=== PATIENT | female | born 2000 | race Caucasian/White ===

== ENCOUNTER 2023-11-06 11:58 | Inpatient (IN) | payer OTHER, SELFPAY ==
[2023-11-06] VITALS (42 sets, daily range): BP systolic 117–143; BP diastolic 67–95; PULSE 71–114; RESP 14–18; TEMP 36.4–37.8; O2SAT 94–99; BMI 32.3
[2023-11-06 11:18] LABS: Hematocrit 36.6 % (37-47); Hemoglobin 12.5 g/dL (12.0-15.0); Mean Corp Hgb Conc 34.2 g/dL (32-36); Mean Corpuscular Hgb 29.1 pg (27.0-32.0); Mean Corpuscular Volume 85.1 fL (81-99); Mean Platelet Vol. 12.4 fl (6.2-12.0); Platelet Count 146 K/mm3 (150-450); RBC Distribution Width CV 13.6 % (11.6-14.6); RBC Distribution Width SD 41.4 fl (35.1-43.9); White Blood Count 11.3 K/mm3 (4.4-11.0)
[2023-11-06 11:33] LABS: AST(SGOT) 27 U/L (15-37); Alanine Aminotransfer ALT/SGPT 15 U/L (13-56); Creatinine, Serum 0.82 mg/dL (0.55-1.02); EST Glomerular Filtration Rate 90 mL/min (>60); Est Glom Filt Rate - Afr Amer 109 mL/min (>60); Estimated Creatinine Clearance 102.82 ml/min
[2023-11-06 11:35] LABS: Protein, Urine (Random) 406.1 mg/dL (<11.9); Protein:Creat Ratio 1624 mg/g CRE (0-200)
[2023-11-06] MEDS: 0.9% Saline Lock 10 ML Syringe IV (13:08)
[2023-11-06] MEDS: miSOPROStol 25 MCG TABLET VAGINAL (13:09)
[2023-11-06 16:43] LABS: Syphilis Antibodies Non-reactive
[2023-11-06] MEDS: 0.9% Normal Saline Single 100 ML IV.SOLN. INTRA-UTER (17:40)
[2023-11-06] MEDS: LACTATED RINGERS 500 ML 999 ML IV ×2 (18:22→20:45)
[2023-11-06] MEDS: Lactated Ringers 1,000 ML 999 ML IV (19:31)
--- NOTE | 2023-11-06 19:42 | PCM.HP.OB ---
HPI - General General Date of Admission: 11/06/23 Date of Service: 11/06/23 Chief Complaint: Pre E HPI Narrative TRINH ROMAN, is a 23 F who presents from the office with elevated BP and proteinuria. No RICKETTS or vision changes. Maternal Data Information Final FAITH: 11/11/23 Gestational age: 39+2 [facility] Medical History (Updated 11/06/23 @ 19:[address] Diane Campos MD) Pre-eclampsia Home Medications ?Medication ?Instructions ?Recorded ?Last Taken ?Type Vitamin 1 tab PO DAILY 11/06/23 11/06/23 07:00 History 1 tab Allergy/AdvReac Type Severity Reaction Status Date / Time No Known Allergies Allergy Verified 11/06/23 13:35 Social History Smoking Status: Never smoker History 1 Elective abortions Hx Para 0 Spontaneous abortions Hx # Term Pregnancies Ectopic pregnancies Hx # Pregnancies Multiple births # of living children NST FHR Rate Baby A Baseline: 140 Variability:: Moderate Accelerations:: 15 x 15 Decelerations:: None NST Reactive:: Yes FHR Category:: Category I ROS Constitutional Constitutional: Denies fatigue, fever(s) or malaise Eyes Eyes: Denies change in vision ENT HEENT: Denies dizziness or headache(s) Cardiovascular Cardiovascular: Denies chest pain, dyspnea or lightheadedness Respiratory/Chest Respiratory/Chest: Denies cough or dyspnea Gastrointestinal Gastrointestinal: Denies change in bowel habits Genitourinary Genitourinary: Denies burning urination or genital lesions Integumentary Integumentary: Denies rash Neurologic Neurologic: Denies confusion, dizziness, headache(s), numbness or weakness Vital Signs Vital Signs Vital Signs: 11/06/23 10:46 11/06/23 10:46 11/06/23 10:46 Temperature 97.6 F L Temperature Source Temporal Pulse Rate Respiratory Rate 16 Blood Pressure BP Systolic BP Diastolic Pulse Ox 11/06/23 10:47 11/06/23 10:47 11/06/23 10:47 Temperature Temperature Source Pulse Rate 86 90 Respiratory Rate Blood Pressure 138/90 H BP Systolic 138 BP Diastolic 90 Pulse Ox 11/06/23 10:47 11/06/23 11:02 11/06/23 11:02 Temperature Temperature Source Pulse Rate 89 Respiratory Rate Blood Pressure 117/78 BP Systolic 117 BP Diastolic 78 Pulse Ox 96 11/06/23 11:18 11/06/23 11:18 11/06/23 11:32 Temperature Temperature Source Pulse Rate 81 Respiratory Rate Blood Pressure 133/87 H 134/87 H BP Systolic 133 134 BP Diastolic 87 87 Pulse Ox 11/06/23 11:32 11/06/23 11:46 11/06/23 11:46 Temperature Temperature Source Pulse Rate 83 77 Respiratory Rate Blood Pressure 129/84 H BP Systolic 129 BP Diastolic 84 Pulse Ox 11/06/23 12:01 11/06/23 12:01 11/06/23 13:31 Temperature Temperature Source Pulse Rate 75 Respiratory Rate Blood Pressure 122/82 H 134/90 H BP Systolic 122 134 BP Diastolic 82 90 Pulse Ox 11/06/23 13:31 11/06/23 13:32 11/06/23 13:32 Temperature Temperature Source Pulse Rate 73 72 Respiratory Rate Blood Pressure BP Systolic BP Diastolic Pulse Ox 96 11/06/23 13:32 11/06/23 13:32 11/06/23 13:32 Temperature Temperature Source Temporal Pulse Rate Respiratory Rate 18 Blood Pressure BP Systolic BP Diastolic Pulse Ox 97 11/06/23 13:32 11/06/23 14:59 11/06/23 14:59 Temperature 98.8 F Temperature Source Pulse Rate 77 Respiratory Rate Blood Pressure 131/84 H BP Systolic 131 BP Diastolic 84 Pulse Ox 11/06/23 14:59 11/06/23 14:59 11/06/23 14:59 Temperature 98.7 F Temperature Source Temporal Pulse Rate Respiratory Rate 16 Blood Pressure BP Systolic BP Diastolic Pulse Ox 11/06/23 17:34 11/06/23 17:34 11/06/23 17:34 Temperature Temperature Source Temporal Pulse Rate 91 Respiratory Rate Blood Pressure 139/92 H BP Systolic 139 BP Diastolic 92 Pulse Ox 11/06/23 17:34 11/06/23 17:34 11/06/23 19:20 Temperature 100.0 F H Temperature Source Temporal Pulse Rate Respiratory Rate 18 Blood Pressure BP Systolic BP Diastolic Pulse Ox 11/06/23 19:20 11/06/23 19:20 11/06/23 19:20 Temperature Temperature Source Pulse Rate 71 Respiratory Rate 14 Blood Pressure BP Systolic BP Diastolic Pulse Ox 97 11/06/23 19:20 11/06/23 19:23 11/06/23 19:23 Temperature 98.1 F Temperature Source Pulse Rate 80 Respiratory Rate Blood Pressure 141/85 H BP Systolic 141 BP Diastolic 85 Pulse Ox Weight Weight: 80.1 kg Body Mass Index (BMI) 32.3 Physical Exam Const alert and no apparent distress General Appearance: cooperative HEENT normocephalic Resp normal respiratory effort Cardio regular rate GI soft to palpation GI Narrative: gravid, nontender, appropriate for gestational age Extremity no calf tenderness General Extremity: edema Skin no wounds Rashes: No rashes noted Psych activity/motor behavior normal Labs Labs Labs: Blood Type A NEGATIVE Antibody Screen POSITIVE Hct 36.6 % (37-47) L Hgb 12.5 g/dL (12.0-15.0) Syphilis Total Ab Non-reactive Assessment & Plan (1) 39 weeks gestation of : (2) Pre-eclampsia affecting , antepartum: PLAN: Plan IOL for Pre E
--- NOTE | 2023-11-06 19:49 | PCM.PN.OB ---
Subjective Subjective Morgan placed without difficulty. 2 70/-2 soft. s/p one dose of cytotec. No pit currently Cat I. Objective Data Objective Data Vital Signs: Vital Signs Temp Pulse Resp BP Pulse Ox 98.1 F 80 14 141/85 H 97 11/06/23 19:20 11/06/23 19:23 11/06/23 19:20 11/06/23 19:23 11/06/23 19:20 Weight: 80.1 kg Body Mass Index (BMI) 32.3 Intake & Output: Intake and Output for Last 24 Hours 11/04/23 11/05/23 11/06/23 23:59 23:59 23:59 Intake Total 600 / 600 Balance 600 / 600 Lab / Micro Data 11/06/23 11:05 11/06/23 11:05 Labs: Laboratory Results - last 24 hr 11/06/23 11:05: WBC 11.3 H, RBC 4.30, Hgb 12.5, Hct 36.6 L, MCV 85.1, MCH 29.1, MCHC 34.2, RDW Std Deviation 41.4, RDW Coeff of Yoana 13.6, Plt Count 146 L, MPV 12.4 H, Creatinine 0.82, Estim Creat Clear Calc 102.82, Est GFR (MDRD) Af Amer 109, Est GFR (MDRD) Non-Af 90, Uric Acid 8.0 H, AST 27, ALT 15, U Random Total Protein 406.1 H, Urine Creatinine 250.00, Protein/Creatinin Ratio 1624 H 11/06/23 13:05: Syphilis Total Ab Non-reactive, Blood Type A NEGATIVE, Antibody Screen POSITIVE, Antibody Identification ANTI-D NST FHR Rate Baby A FHR Category:: Category I Assessment & Plan (1) Pre-eclampsia affecting , antepartum: (2) 39 weeks gestation of :
[2023-11-06] MEDS: fentaNYL-bupivacaine (epidural) 100 ML BAG EPIDURAL (20:27)
[2023-11-06] MEDS: Lactated Ringers 1,000 ML 200 ML IV (20:33)
[2023-11-06] MEDS: Terbutaline 1 MG/ML Vial 0.25 MG SC (20:50)
--- NOTE | 2023-11-06 20:56 | PCM.PN.OB ---
Subjective Subjective HR decel to 90 AROM with mec present. IUPC and FSE placed. Terb given for tachysystole. Has not had Pitocin. One dose of Cytotec 8 hours ago. HR recovery with acceleration Objective Data Objective Data Vital Signs: Vital Signs Temp Pulse Resp BP Pulse Ox 99.2 F H 85 14 134/92 H 98 11/06/23 20:28 11/06/23 20:55 11/06/23 20:35 11/06/23 20:50 11/06/23 20:55 Weight: 80.1 kg Body Mass Index (BMI) 32.3 Intake & Output: Intake and Output for Last 24 Hours 11/04/23 11/05/23 11/06/23 23:59 23:59 23:59 Intake Total 600 / 600 Balance 600 / 600 Lab / Micro Data 11/06/23 11:05 11/06/23 11:05 Labs: Laboratory Results - last 24 hr 11/06/23 11:05: WBC 11.3 H, RBC 4.30, Hgb 12.5, Hct 36.6 L, MCV 85.1, MCH 29.1, MCHC 34.2, RDW Std Deviation 41.4, RDW Coeff of Yoana 13.6, Plt Count 146 L, MPV 12.4 H, Creatinine 0.82, Estim Creat Clear Calc 102.82, Est GFR (MDRD) Af Amer 109, Est GFR (MDRD) Non-Af 90, Uric Acid 8.0 H, AST 27, ALT 15, U Random Total Protein 406.1 H, Urine Creatinine 250.00, Protein/Creatinin Ratio 1624 H 11/06/23 13:05: Syphilis Total Ab Non-reactive, Blood Type A NEGATIVE, Antibody Screen POSITIVE, Antibody Identification ANTI-D Assessment & Plan (1) Pre-eclampsia affecting , antepartum: (2) 39 weeks gestation of : PLAN: Plan Continue to monitor
[2023-11-07] VITALS (118 sets, daily range): BP systolic 124–168; BP diastolic 70–103; PULSE 80–115; RESP 14–18; TEMP 36.6–37.8; O2SAT 82–100
[2023-11-07] MEDS: fentaNYL-bupivacaine (epidural) 100 ML BAG EPIDURAL ×2 (01:35→07:57)
[2023-11-07] MEDS: Lactated Ringers 1,000 ML 200 ML IV ×2 (02:55→07:57)
[2023-11-07] MEDS: Ondansetron 4 MG/2 ML Vial IV (05:18)
--- NOTE | 2023-11-07 05:39 | PCM.PN.OB ---
Subjective Subjective 5-6/80/-2 vertex now well applied to cervix, fluid clear after an initial finding of mec, intermittent cat 2. Has had no pitocin. One severe range BP. Objective Data Objective Data Vital Signs: Vital Signs Temp Pulse Resp BP Pulse Ox 99.2 F H 90 14 146/95 H 97 11/07/23 04:48 11/07/23 05:21 11/07/23 04:48 11/07/23 05:21 11/07/23 04:49 Weight: 80.1 kg Body Mass Index (BMI) 32.3 Intake & Output: Intake and Output for Last 24 Hours 11/05/23 11/06/23 11/07/23 23:59 23:59 23:59 Intake Total 2099 / 2099 1000 / 1000 Output Total 400 / 400 Balance 2099 / 2099 600 / 600 Lab / Micro Data 11/06/23 11:05 11/06/23 11:05 Labs: Laboratory Results - last 24 hr 11/06/23 11:05: WBC 11.3 H, RBC 4.30, Hgb 12.5, Hct 36.6 L, MCV 85.1, MCH 29.1, MCHC 34.2, RDW Std Deviation 41.4, RDW Coeff of Yoana 13.6, Plt Count 146 L, MPV 12.4 H, Creatinine 0.82, Estim Creat Clear Calc 102.82, Est GFR (MDRD) Af Amer 109, Est GFR (MDRD) Non-Af 90, Uric Acid 8.0 H, AST 27, ALT 15, U Random Total Protein 406.1 H, Urine Creatinine 250.00, Protein/Creatinin Ratio 1624 H 11/06/23 13:05: Syphilis Total Ab Non-reactive, Blood Type A NEGATIVE, Antibody Screen POSITIVE, Antibody Identification ANTI-D
[2023-11-07] MEDS: Oxytocin 15 Units/NS 250ml 15 UNITS/250 ML IV.SOLN 2 UNITS IV (08:56)
[2023-11-07] MEDS: Oxytocin 15 Units/NS 250ml 15 UNITS/250 ML IV.SOLN 334 UNITS IV (12:55)
--- NOTE | 2023-11-07 13:28 | EX.PCM.OBRPT ---
Assessment & Plan (1) Pre-eclampsia affecting , antepartum: (2) 39 weeks gestation of : (3) (spontaneous vaginal delivery): (4) Single live : (5) Second degree perineal laceration during delivery: Maternal Data Information Final FAITH: 11/11/23 Gestational age: 39 3/7 Vaginal Delivery Maternal Presentation Maternal Presentation: Medically Indicated Induction Type of Induction: Pitocin, Morgan Bulb, Amniotomy and Cytotec Operative Information Date of Procedure: 11/07/23 Pre-Operative Diagnosis: preeclampsia, 39 weeks Post-Operative Diagnosis: same Surgery / Procedure Performed: Spontaneous Vaginal Delivery Type of Anesthesia: Epidural Special Medications: none Drain: Morgan to straight drain Estimated Blood Loss: 400 Time of Delivery: 12:52 Findings Description of Procedure: A vigorous female was delivered KELIN over a second-degree perineal laceration. The remainder the was delivered with maternal pushing and gentle traction only in less than 15 seconds. The Pitocin infusion was initiated for active management of the third stage. The cord was clamped and cut after 1 minute. The was attended to by the waiting nursing staff. The placenta was delivered spontaneously and intact. The cervix and vagina were intact. The second-degree perineal laceration was repaired with 3-0 and 2 -0 Vicryl suture in a running standard fashion. Sponge and needle counts were correct. A vaginal sweep was completed by me. Presentation: KELIN Amniotic Membrane Rupture Type: Artificial Amniotic Fluid Description: Clear and Lightly stained meconium Placental Delivery Description: Spontaneous Placenta Disposition: [facility] Cord Vessel Description: 3 Vessels Cord Entanglement: None Infant A Gender: Female (Kandace) (1 minute): 8 (5 minute): 9 Delayed Cord Clamping: Yes Post Vaginal Delivery Medications Given After Delivery: IV Pitocin Episiotomy Description: None Laceration: 2nd degree Complication Complications: None Admit VTE Documentation VTE Present on Admission: No VTE Pharm Prophylaxis Ordered: No
[2023-11-07] MEDS: Oxytocin 15 Units/NS 250ml 15 UNITS/250 ML IV.SOLN 83 UNITS IV (13:30)
--- NOTE | 2023-11-07 15:56 | NURSING ---
8022 dr toussaint office called with the last 3 blood pressures- waiting for return call
[2023-11-07] MEDS: Labetalol (Prefilled) 20 MG/4 ML IV (16:18)
[2023-11-07] MEDS: Magnesium Sulfate 4gm/100mL 4 GM/100 ML IV.SOLN. IV (16:33)
[2023-11-07] MEDS: Magnesium Sulfate 20 GM/500 ML BAG IV (17:00)
--- NOTE | 2023-11-07 17:01 | NURSING ---
dr toussaint notified of pts pulse ox 93-94% while sleeping- order to place O2 on if drops less than 90%
[2023-11-07] MEDS: Labetalol 100 MG Tablet PO ×2 (17:34→22:40)
--- NOTE | 2023-11-07 20:02 | NURSING ---
1944 pt oob up to chair pt gait slow and steady
--- NOTE | 2023-11-07 20:40 | NURSING ---
2024 pt assisted back to bed
[2023-11-08] VITALS (24 sets, daily range): BP systolic 110–139; BP diastolic 65–89; PULSE 70–89; RESP 16–20; TEMP 36.4–37; O2SAT 96–98
[2023-11-08] MEDS: Magnesium Sulfate 20 GM/500 ML BAG IV (02:34)
--- NOTE | 2023-11-08 07:47 | PCM.PN.OB ---
Subjective Subjective pain well controlled, average lochia. Denies RICKETTS or visual changes Objective Data Objective Data Vital Signs: Vital Signs Temp Pulse Resp BP Pulse Ox O2 Del Method 97.8 F 78 18 128/78 H 97 Room Air 11/08/23 06:43 11/08/23 06:43 11/08/23 06:43 11/08/23 06:43 11/08/23 06:43 11/08/23 06:43 Oxygen Delivery Method Room Air Weight: 80.1 kg Body Mass Index (BMI) 32.3 Intake & Output: Intake and Output for Last 24 Hours 11/06/23 11/07/23 11/08/23 23:59 23:59 23:59 Intake Total 2099 3593.63 / 3593.63 578.33 / 578.33 Output Total 3775 / 3775 1700 / 1700 Balance 2099 -181.37 / -181.37 -1121.67 / -1121.67 Lab / Micro Data 11/06/23 11:05 11/06/23 11:05 Physical Exam Narrative 2+ LE edema, 1+ DTrs, no clonus Const alert and no apparent distress Narrative: Fundus firm, below umbilicus. Assessment & Plan (1) Second degree perineal laceration during delivery: PLAN: PPD#1 s/p , preeclampsia with severe features. Ok to d/c magnesium 24 hrs after delivery> BP stable. Monitor closely. doing well> R echeck CBC today (2) (spontaneous vaginal delivery): (3) Pre-eclampsia affecting , antepartum:
[2023-11-08] MEDS: NIFEdipine 30 MG Tablet PO (10:08)
[2023-11-08] MEDS: Labetalol 100 MG Tablet PO ×2 (10:09→22:02)
[2023-11-08 10:38] LABS: Hematocrit 32.5 % (37-47); Mean Corp Hgb Conc 33.8 g/dL (32-36); Mean Corpuscular Hgb 28.6 pg (27.0-32.0); Mean Corpuscular Volume 84.4 fL (81-99); Mean Platelet Vol. 11.1 fl (6.2-12.0); Platelet Count 120 K/mm3 (150-450); RBC Distribution Width SD 42.9 fl (35.1-43.9); Red Blood Count 3.85 M/mm3 (4.2-5.4); White Blood Count 20.6 K/mm3 (4.4-11.0)
--- NOTE | 2023-11-08 11:22 | NURSING ---
Report given to Rocio Smith RN. She will assume care of patient at this time.
[2023-11-08] MEDS: 0.9% Saline Lock 10 ML Syringe IV (13:11)
[2023-11-09 01:22] VITALS: BP 107/59; PULSE 86; PULSE 87; RESP 18; TEMP 36.5; O2SAT 95
[2023-11-09] MEDS: 0.9% Saline Lock 10 ML Syringe IV (01:22)
[2023-11-09 08:15] VITALS: BP 122/79; PULSE 92; RESP 16; TEMP 36.8; O2SAT 98
[2023-11-09 08:35] VITALS: BP 122/79; PULSE 88; PULSE 92; O2SAT 96
[2023-11-09 10:40] VITALS: BP 121/59; PULSE 84
[2023-11-09] MEDS: NIFEdipine 30 MG Tablet PO (11:40)
[2023-11-09 12:18] LABS: Hematocrit 30.1 % (37-47); Hemoglobin 10.1 g/dL (12.0-15.0); Mean Corp Hgb Conc 33.6 g/dL (32-36); Mean Corpuscular Hgb 28.9 pg (27.0-32.0); Mean Corpuscular Volume 86.2 fL (81-99); Mean Platelet Vol. 10.8 fl (6.2-12.0); Platelet Count 138 K/mm3 (150-450); RBC Distribution Width CV 14.4 % (11.6-14.6); RBC Distribution Width SD 44.4 fl (35.1-43.9); Red Blood Count 3.49 M/mm3 (4.2-5.4); White Blood Count 17.2 K/mm3 (4.4-11.0)
--- NOTE | 2023-11-09 13:07 | PCM.DC.SUM ---
Providers Date of Admission: 11/06/23 Primary Care Physician: No Primary Care Phys Reason For Visit: VAG DELIVERY Diagnosis Discharge Diagnosis (1) Second degree perineal laceration during delivery: Status: Acute Code(s): O70.1 - Second degree perineal laceration during delivery Plan: PPD#1 s/p , preeclampsia with severe features. Ok to d/c magnesium 24 hrs after delivery> BP stable. Monitor closely. doing well> R echeck CBC today (2) (spontaneous vaginal delivery): Status: Acute Code(s): O80 - Encounter for full-term uncomplicated delivery (3) Pre-eclampsia affecting , antepartum: Status: Acute Code(s): O14.90 - Unspecified pre-eclampsia, unspecified trimester Medications at Discharge Home Medications Vitamin 1 tab PO DAILY 11/06/23 ibuprofen 600 mg tablet 600 mg PO Q6H PRN Pain 20 days #60 TABLETS 11/09/23 nifedipine 30 mg tablet,extended release 24 hr (Procardia XL) 30 mg PO DAILY 20 days #20 tabs 11/09/23 Hospital Course Operations None Procedures None Summary of Care Provided Minutes Spent on Discharge: 22 Hospital Course: 23-year-old nulliparous patient admitted at 39-2/7 weeks gestation on 11/06/2023 underwent Morgan and Cytotec induction of labor for preeclampsia. Eventually had artificial rupture membranes and a spontaneous vaginal delivery with second-degree perineal laceration repair on 11/07/2023. She then had blood pressures high enough to initiate the hypertensive emergency protocol. She was given antihypertensives and magnesium prophylaxis for 24 hours. Her blood pressure stabilized and she was initially on oral Procardia and labetalol but on day #2 her blood pressures were low enough that the labetalol was held and she was just on the Procardia. I discussed with the patient option of discharge home with close follow-up versus continued monitoring in the hospital. Patient was comfortable with DC home and close follow-up. Will have patient into the office tomorrow for blood pressure check. is breast-feeding and doing well. Home with routine instructions and follow-up return for signs or symptoms of severe preeclampsia and continue Procardia for now. Patient is to follow-up in the office tomorrow morning at 9:30 AM the office was notified of this. Physical Exam Narrative This will note will act as patient's progress note as well as discharge summary Patient denies headache or visual changes today. No epigastric pain. No nausea or vomiting. Average lochia. is breast-feeding and doing well. No other complaints today. PE Ext 2+ edema. 2+ DTRs, no clonus A/p PPD#2 s/p , s/p magensium prophylaxis for severe preeclampsia BP stable d/c labetalol, cont. procardia nenate doing well d/c w/ close f/u, appointment in office in am. Const alert and no apparent distress Narrative: Fundus firm, below umbilicus. Weight / BMI Weight Weight: 80.1 kg Body Mass Index (BMI) 32.3 ABG / Lab / Microbiology Data 11/09/23 12:10 11/06/23 11:05 Laboratory: Laboratory Results - last 24 hr 11/09/23 12:10: WBC 17.2 H, RBC 3.49 L, Hgb 10.1 L, Hct 30.1 L, MCV 86.2, MCH 28.9, MCHC 33.6, RDW Std Deviation 44.4 H, RDW Coeff of Yoana 14.4, Plt Count 138 L, MPV 10.8 D/C Instructions May resume sexual activity in: 6 weeks Please Follow Up With: Elodia Zarate MD When: Send a [employer] message or call [phone] with any concerns. Follow up in our office at 930 am on 11/10/23- an appointment has been made for you. Meaningful Use Info Meaningful Use Meaningful Use Diagnoses (Choose all that apply): None applicable Ischemic Stroke Statin Dosing Therapy Reference: STATIN DOSE THERAPY REFERENCE: * Patients > 75 years receive moderate or high dose statin therapy. * Patients 75 years or YOUNGER should receive HIGH intensity statin dose unless contraindicated. You will be required to document reason for non-treatment if statin daily dose does not meet guidelines. HIGH DOSE STATIN THERAPY DAILY Atorvastatin > than or = to 40 mg Rosuvastatin > than or = to 20 mg Amlodipine + Atorvastatin > than or = to 2.5/40 mg Ezetimibe + Simvastatin 10/80 mg Simvastatin 80mg Discharge Plan Admission Admit Date/Time: 11/06/23 11:58 Primary Reason for Your Visit: Preeclampsia, vaginal delivery Attending Provider: Elodia Zarate Primary Care Provider: Care Physician,No Primary Discharge Orders/Prescriptions Prescriptions: New ibuprofen 600 mg tablet 600 mg PO Q6H PRN (Reason: Pain) 20 Days Qty: 60 1RF nifedipine [Procardia XL] 30 mg tablet extended release 24hr 30 mg PO DAILY 20 Days Qty: 20 0RF Continued Vitamin 1 tab PO DAILY Referrals / Follow Up: Care Physician,No Primary [Primary Care Provider] - Disposition Disposition (needs filled in before D/C Order can be placed): Home, Self Care
[2023-11-09 13:28] VITALS: BP 123/72; PULSE 88
[2023-11-09] MEDS: Senna/Docusate Sodium 1 Tablet PO (13:50)
[2023-11-09 14:00] VITALS: BP 123/72; PULSE 80; RESP 16; TEMP 36.6; O2SAT 98
== END 2023-11-09 14:25 | disposition home or self-care (01) | DRG 807 ==
LOC: WPOUT 12:01 → WP 12:01
PROVIDERS: Obstetrics & Gynecology; Admitting Provider Obstetrics & Gynecology; Referring Provider Obstetrics & Gynecology; Visit Provider Obstetrics & Gynecology
DX: O14.14 Severe pre-eclampsia complicating childbirth (principal); Z37.0 Single live birth; O70.1 Second degree perineal laceration during delivery; O76 Abnormality in fetal heart rate and rhythm complicating labor and delivery; O77.0 Labor and delivery complicated by meconium in amniotic fluid; Z3A.39 39 weeks gestation of pregnancy
CPT/HCPCS: 59025; 59050; 82565; 82570; 84156; 84450; 84460; 84550; 85027; 86780; 86850; 86870; 86900; 86901; 99221; J7120; A4216; G0378; J2405